=== PATIENT | male | born 1945 | race Caucasian/White ===

== ENCOUNTER 2017-09-08 21:21 | Inpatient (IN) ==
[2017-09-08 22:05] LABS: Basophils # 0.1 K/mcL (0.0-0.2); Eosinophils # 0.3 K/mcL (0.0-0.6); Eosinophils % 3.3 %; Hematocrit 46.4 % (37.5-50.1); Hemoglobin 14.9 g/dL (12.9-16.9); Immature Granulocytes % 0.3 % (0-4); Lymphocytes # 2.5 K/mcL (0.6-4.6); Lymphocytes % 27.8 %; Mean Corpuscular HGB Conc 32.1 g/dL (31.6-35.5); Mean Corpuscular Hemoglobin 27.9 pg (28.0-33.3); Mean Corpuscular Volume 86.9 fL (83.0-100.0); Mean Platelet Volume 9.7 fL (9.4-12.4); Monocytes # 0.7 K/mcL (0.0-1.3); Neutrophils # 5.3 K/mcL (1.6-8.9); Platelet Count 218 K/mcL (140-400); Red Blood Count 5.34 M/mcL (4.19-5.50); Red Cell Distribution Width 13.4 % (11.5-14.5); Segmented Neutrophils % 59.6 %
[2017-09-08 22:12] LABS: Prothrombin Time 10.7 Seconds (9.4-12.1)
[2017-09-08 22:15] LABS: Activated Partial Thrombo Time 32.8 Seconds (26.0-36.0)
[2017-09-08 22:27] LABS: BUN/Creatinine Ratio 20 (6-26); Blood Urea Nitrogen 18 mg/dL (8-23); Calcium 9.7 mg/dL (8.6-10.3); Carbon Dioxide 31 mEq/L (23-29); Chloride 101 mEq/L (98-107); Glucose 143 mg/dL (70-105); Osmolality,Calculated 292 (280-300); Potassium 4.3 mEq/L (3.5-5.1); Sodium 139 mEq/L (136-145); Troponin I < 0.03 ng/mL (< 0.04); eGFR For African Americans > 60 (> 60); eGFR For Non-African Americans > 60 (> 60)
--- NOTE | 2017-09-09 01:22 | Emergency Department Note ---
Disposition Clinical Impression: Atypical chest pain Left shoulder pain Qualifiers: Chronicity: acute Qualified Code(s): M25.512 - Pain in left shoulder Disposition: Admitted As Inpatient Condition: Good Referrals: Omari,Paulina Dugan CNP [Primary Care Provider] - Forms: ED Satisfaction Letter Time of Disposition: 02:21 Chest Pain HPI - General Chief Complaint: ED Chest Pain Stated Complaint: shoulder arm pain heart cath tomorrow Time Seen by Provider: 09/08/17 22:05 Source: patient Limitations: no limitations Vital Signs Reviewed: Yes Nursing Notes Reviewed: Yes - History of Present Illness HPI Narrative: 72-year-old male smoker diabetic complains of upper extremity pain . He mentions he was accompanied with some shortness of breath, and was worse on exertion. His pain radiated up into his jaw. Any had tingling to his left pinky. Pain had improved after 1 nitroglycerin. He does mention he was scheduled for a cardiac catheterization tomorrow morning. He denies any cough, hemoptysis, fever, abdominal pain, passing out, chest pain. Severity scale (1-10): 0 - Related Data Home Medications Medication Instructions Recorded Confirmed Jardiance 01/14/16 Lisinopril 01/14/16 Metformin 01/14/16 Tylenol 01/14/16 Previous Rx's Medication Instructions Recorded predniSONE [Prednisone] 40 mg PO QAM #10 tablet 01/14/16 Allergies Allergy/AdvReac Type Severity Reaction Status Date / Time liraglutide [From Victoza] AdvReac See Verified 03/26/15 12:53 Comments sitagliptin [From Januvia] AdvReac See Verified 03/26/15 12:53 Comments All systems ED: reviewed and negative except as stated. Review of Systems: As Per HPI Constitutional: Denies: fever, chills, weakness Eyes: Denies: vision change ENT ED: Denies: throat pain Cardiovascular: Reports: as per HPI Respiratory: Reports: as per HPI Gastrointestinal: Reports: as per HPI. Denies: abdominal pain Genitourinary: Denies: dysuria Musculoskeletal: Reports: as per HPI Integumentary: Denies: rash Neurological: Denies: headache Psychiatric: Denies: anxiety Endocrine: Denies: fatigue Hematological/Lymphatic: Denies: easy bleeding Allergic/Immunologic: Denies: facial swelling Chest Pain PMH - Past Medical History Medical history: Reports: diabetes, hypertension Surgical history: Reports: non-contributory Psychiatric history: Reports: no psych history - Social History Smoking Status: Former smoker Alcohol use: Reports: rarely Drug use: Reports: none Physical Exam - General Limitations: no limitations General appearance: alert, in no apparent distress - Head Head exam: normocephalic - Eye Eye exam: Present: EOMI. Absent: conjunctival injection - ENT ENT exam: mucous membranes moist - Neck Neck exam: Present: normal inspection, full ROM - Chest Chest inspection: Present: normal inspection. Absent: symmetric chest wall rise - Respiratory Respiratory exam: Present: normal lung sounds bilaterally. Absent: respiratory distress - Cardiovascular Cardiovascular exam: Present: regular rate, normal rhythm - Abdominal Exam Abdominal exam: Present: soft, Non-Tender - Extremities Exam Extremities exam: Present: normal inspection, full ROM, normal capillary refill. Absent: pedal edema - Back Exam Back exam: Present: full ROM. Absent: tenderness - Neurological Exam Neurological exam: Present: alert - Psychiatric Psychiatric exam: Present: normal affect, normal mood - Skin Skin exam: Present: warm, dry, intact, normal color. Absent: diaphoresis Course Course Narrative: Patient is a 72-year-old male former smoker that presented for concern for possible heart attack. He mentions he had pain into his back, left shoulder, jaw, that was worse with exertion and improved after nitroglycerin. Patient is scheduled for cardiac catheterization tomorrow morning. I have reviewed EMR. Did have cardiac evaluation last week, did show some ischemic changes. His vitals within normal limits here. EKG tonight shows nonspecific T-wave abnormalities otherwise no acute signs of ischemia. On exam he is in no acute distress systolic toxic. Vitals within normal limits. He is no elevation troponin. His lab work appears unremarkable. I did discuss patient with Dr. Cortes, who agreed to see patient, and agreed for admission for ACS rule out. - Reevaluation(s) Reevaluation #1: Pt discussed with and accepted by hospitalist Dr. Negro Time: 02:21 Vital Signs Temperature 98.0 F 09/08/17 21:25 Pulse Rate 65 09/08/17 21:25 Respiratory Rate 16 09/08/17 21:25 Blood Pressure 153/82 09/08/17 21:25 O2 Sat by Pulse Oximetry 92 09/08/17 21:25 Temperature 98.0 F 09/08/17 21:25 Pulse Rate 66 09/09/17 00:28 Respiratory Rate 16 09/09/17 00:28 Blood Pressure 132/79 09/09/17 00:28 O2 Sat by Pulse Oximetry 94 09/09/17 00:28 Oxygen Delivery Oxygen Delivery Room Air Chest Pain - Lab Data Lab results reviewed: Yes I reviewed the patient's lab results. Result diagrams: 09/08/17 21:42 09/08/17 21:42 Lab Results 09/08/17 09/08/17 09/08/17 Range/Units 21:42 21:42 21:42 WBC 8.8 (4.3-11.1) K/mcL RBC 5.34 (4.19-5.50) M/mcL Hgb 14.9 (12.9-16.9) g/dL Hct 46.4 (37.5-50.1) % MCV 86.9 (83.0-100.0) fL MCH 27.9 L (28.0-33.3) pg MCHC 32.1 (31.6-35.5) g/dL RDW 13.4 (11.5-14.5) % Plt Count 218 (140-400) K/mcL MPV 9.7 (9.4-12.4) fL Immature Gran % 0.3 (0-4) % Seg Neutrophils % 59.6 % Lymphocytes % 27.8 % Monocytes % 8.0 % Eosinophils % 3.3 % Basophils % 1.0 % Neutrophils # 5.3 (1.6-8.9) K/mcL Lymphocytes # 2.5 (0.6-4.6) K/mcL Monocytes # 0.7 (0.0-1.3) K/mcL Eosinophils # 0.3 (0.0-0.6) K/mcL Basophils # 0.1 (0.0-0.2) K/mcL PT 10.7 (9.4-12.1) Seconds INR 1.0 APTT 32.8 (26.0-36.0) Seconds Sodium 139 (136-145) mEq/L Potassium 4.3 (3.5-5.1) mEq/L Chloride 101 (98-107) mEq/L Carbon Dioxide 31 H (23-29) mEq/L BUN 18 (8-23) mg/dL Creatinine 0.92 (0.70-1.30) mg/dL Est GFR ( Amer) > 60 (> 60) Est GFR (Non-Af Amer) > 60 (> 60) BUN/Creatinine Ratio 20 (6-26) Glucose 143 H (70-105) mg/dL Calculated Osmolality 292 (280-300) Calcium 9.7 (8.6-10.3) mg/dL Troponin I < 0.03 (< 0.04) ng/mL - Radiology Data Radiology results reviewed: Yes I reviewed the patient's radiology results. - EKG Data EKG attestation: Yes I reviewed and interpreted this EKG. EKG shows normal: sinus rhythm Rate: normal Rhythm: NSR [place]/QRS: normal When compared to previous EKG there are: changes noted Interpretation: nonspecific ST-T wave changes Heart Score - Score History: Moderately Suspicious EKG: Non Specific repolarisation Disturbance Age: Greater than 65 Risk Factors: Equal/Greater than 3 risk factor or history of atherosclerotic disease Troponin: Less than normal limit HEART Score Total: 6
--- NOTE | 2017-09-09 06:30 | Emergency Department Note ---
Disposition Clinical Impression: Atypical chest pain Left shoulder pain Qualifiers: Chronicity: acute Qualified Code(s): M25.512 - Pain in left shoulder Disposition: Admitted As Inpatient Condition: Good General Adult HPI - General Chief complaint: ED Chest Pain Stated complaint: shoulder arm pain heart cath tomorrow Time Seen by Provider: 09/08/17 22:05 Source: patient Limitations: no limitations - History of Present Illness Pain Scale: 0 - Related Data Home Medications Medication Instructions Recorded Confirmed Jardiance 25 mg PO DAILY 01/14/16 Lisinopril 10 mg PO 01/14/16 Metformin 500 mg PO 01/14/16 Aspirin [Ecotrin] 325 mg PO 09/09/17 Atorvastatin [Lipitor] 10 mg PO HS 09/09/17 09/09/17 Metoprolol Succinate [Toprol Xl] 09/09/17 Nitroglycerin [Nitrostat] 09/09/17 Tamsulosin HCl [Flomax] 09/09/17 traZODone [TraZODone] 50 mg PO 09/09/17 Allergies Allergy/AdvReac Type Severity Reaction Status Date / Time liraglutide [From Victoza] AdvReac See Verified 03/26/15 12:53 Comments sitagliptin [From Januvia] AdvReac See Verified 03/26/15 12:53 Comments Constitutional: Denies: fever, chills, weakness Eyes: Denies: vision change ENT ED: Denies: throat pain Cardiovascular: Reports: as per HPI Respiratory: Reports: as per HPI Gastrointestinal: Reports: as per HPI. Denies: abdominal pain Genitourinary: Denies: dysuria Musculoskeletal: Reports: as per HPI Integumentary: Denies: rash Neurological: Denies: headache Psychiatric: Denies: anxiety Endocrine: Denies: fatigue Hematological/Lymphatic: Denies: easy bleeding Allergic/Immunologic: Denies: facial swelling Past Medical History - Past Medical History Medical history: Reports: diabetes, hypertension Surgical history: Reports: non-contributory, appendectomy, knee replacement Psychiatric history: Reports: no psych history - Social History Smoking Status: Former smoker Smokeless Tobacco Status: No Alcohol use: Reports: rarely Drug use: Reports: none Physical Exam - General Limitations: no limitations General appearance: alert, in no apparent distress Course Vital Signs Temperature 98.0 F 09/08/17 21:25 Pulse Rate 65 09/08/17 21:25 Respiratory Rate 16 09/08/17 21:25 Blood Pressure 153/82 09/08/17 21:25 O2 Sat by Pulse Oximetry 92 09/08/17 21:25 Temperature 97.9 F 09/09/17 03:36 Pulse Rate 64 09/09/17 03:36 Respiratory Rate 15 09/09/17 03:36 Blood Pressure 127/74 09/09/17 03:36 O2 Sat by Pulse Oximetry 94 09/09/17 03:36 Oxygen Delivery Oxygen Delivery Room Air Medical Decision Making - Lab Data Result diagrams: 09/08/17 21:42 09/08/17 21:42 Lab Results 09/08/17 09/08/17 09/08/17 Range/Units 21:42 21:42 21:42 WBC 8.8 (4.3-11.1) K/mcL RBC 5.34 (4.19-5.50) M/mcL Hgb 14.9 (12.9-16.9) g/dL Hct 46.4 (37.5-50.1) % MCV 86.9 (83.0-100.0) fL MCH 27.9 L (28.0-33.3) pg MCHC 32.1 (31.6-35.5) g/dL RDW 13.4 (11.5-14.5) % Plt Count 218 (140-400) K/mcL MPV 9.7 (9.4-12.4) fL Immature Gran % 0.3 (0-4) % Seg Neutrophils % 59.6 % Lymphocytes % 27.8 % Monocytes % 8.0 % Eosinophils % 3.3 % Basophils % 1.0 % Neutrophils # 5.3 (1.6-8.9) K/mcL Lymphocytes # 2.5 (0.6-4.6) K/mcL Monocytes # 0.7 (0.0-1.3) K/mcL Eosinophils # 0.3 (0.0-0.6) K/mcL Basophils # 0.1 (0.0-0.2) K/mcL PT 10.7 (9.4-12.1) Seconds INR 1.0 APTT 32.8 (26.0-36.0) Seconds Sodium 139 (136-145) mEq/L Potassium 4.3 (3.5-5.1) mEq/L Chloride 101 (98-107) mEq/L Carbon Dioxide 31 H (23-29) mEq/L BUN 18 (8-23) mg/dL Creatinine 0.92 (0.70-1.30) mg/dL Est GFR ( Amer) > 60 (> 60) Est GFR (Non-Af Amer) > 60 (> 60) BUN/Creatinine Ratio 20 (6-26) Glucose 143 H (70-105) mg/dL Calculated Osmolality 292 (280-300) Calcium 9.7 (8.6-10.3) mg/dL Troponin I < 0.03 (< 0.04) ng/mL Attestation Statement - Attestation Attestation: I examined this patient and my medical decision-making was reviewed with the Resident Physician. I agree with the documented findings, disposition and treatment plan as described except to the extent set forth below. Findings consistent with chest pain. Scheduled for cardiac catheterization today. This could be anginal colon's. Cardiac biomarkers are negative. We will admit for further management as he is getting cardiac catheterization today.
--- NOTE | 2017-09-09 10:13 | Cardiology Consult Note ---
Date of Encounter: 09/09/17 Time of Encounter: 10:06 Assessment and Plan (1) Unstable angina Current Visit: Yes Status: Acute Chest discomfort concerning for unstable angina. Has multiple risk factors for CAD including HTN, DM, hyperlipidemia, hx of tobacco use, family hx of CAD. Stress test abnormal with evidence of anterior ischemia. Discussed options with patient- will proceed with cardiac catheterization to evaluate for obstructive CAD. All risks/benefits of cardiac catheterization discussed. Agreeable to proceed. Troponins negative x 2. No acute EKG changes. LHC today. Check TTE as well. (2) Abnormal stress test Current Visit: Yes Status: Acute As above. Discussion w patient/family: The assessment and plan as outlined above was discussed with the patient and/or family members who expressed understanding and agreement. All questions were answered. Thank you for involving us in the care of your patient. Please call with any questions. I will discuss all the above with Dr. Jonna Morataya and make changes as necessary. History of Present Illness Consult date: 09/09/17 Consult reason: unstable angina Chief complaint: chest, back, shoulder, jaw pain History of present illness: Mr. Bourgeois is a 72 year old male with PMH of DM, HTN, hyperlipidemia, PAF presented to ED for chest pain. For past month, pt has had intermittent exertional chest discomfort. Radiates to L arm/shoulder/neck/back. Associated with dyspnea. Resolves with rest. Has had some L arm discomfort while at rest. Symptoms last for few minutes and resolve. He states that episodes have been worsening and yesterday evening after dinner he experienced symptoms at rest. Chest, L arm/shoulder/back pain, jaw tightness. Relieved with 1 nitro. He was concerned, and presented to ED. He was already scheduled for a LHC today for an abnormal stress test on 08/31/17. Moderate intensity stress perfusion defect involving the mid to apical anterior wall consistent with reversible ischemia. TID noted. Denies prior cardiac catheterizations. Told had PAF several years ago. Declined anticoagulation at that time due to nuisance bleeding. Troponin negative x 2. Cardiology consulted for further recs. Past Med Surg Social Fam HX - Past Medical History Medical history: diabetes, hypertension Psychiatric history: no psych history - Past Surgical History Surgical History: non-contributory, appendectomy, knee replacement - Social History Smoking Status: Former smoker Smokeless Tobacco Status: No Alcohol use: rarely Drug use: none - Family History Maternal Grandmother Hx Family Cardiac Disorders: Yes Medications and Allergies Dapagliflozin Propanediol [Farxiga] 10 mg PO DAILY 09/09/17 [History] Empagliflozin [Jardiance] 25 mg PO 09/09/17 [History] Flaxseed Oil [[place]o-3 Flaxseed Oil] 1,000 mg PO DAILY 09/09/17 [History] Insulin Degludec [Tresiba Flextouch U-100] 100 unit SQ 09/09/17 [History] Lisinopril [Zestril] 5 mg PO DAILY 09/09/17 [History] Metoprolol Succinate [Toprol Xl] 25 mg PO DAILY 09/09/17 [History] Nitroglycerin [Nitrostat] 0.4 mg SL Q5M PRN 09/09/17 [History] [place]-3/Dha/Epa/Fish Oil [Fish Oil 1,000 mg Softgel] 2 cap PO DAILY 09/09/17 [ History] Tamsulosin [Flomax] 0.4 mg PO DAILY 09/09/17 [History] metFORMIN [Glucophage] 1,000 mg PO BIDWM 09/09/17 [History] traZODone [TraZODone] 50 mg PO HS 09/09/17 [History] 3 Allergy/AdvReac Type Severity Reaction Status Date / Time liraglutide [From Victoza] AdvReac See Verified 03/26/15 12:53 Comments sitagliptin [From Januvia] AdvReac See Verified 03/26/15 12:53 Comments All Systems Review: The remainder of the systems were reviewed and are negative - Cardiovascular Cardiovascular: as per HPI, chest pain at rest, chest pain with exertion, dyspnea on exertion, radiating jaw, neck or arm pain - Respiratory Respiratory: dyspnea Physical Examination Vital Signs, Last 4 Hours Temp Pulse Resp BP Pulse Ox 09/09/17 06:43 97.4 F L 54 16 125/72 96 Vital Signs Temp Pulse Resp BP Pulse Ox 09/09/17 06:43 97.4 F L 54 16 125/72 96 09/09/17 03:36 97.9 F 64 15 127/74 94 09/09/17 03:12 16 126/75 09/09/17 00:28 66 16 132/79 94 09/08/17 21:25 98.0 F 65 16 153/82 92 Intake and Output 09/08/17 09/09/17 09/09/17 23:59 07:59 15:59 Intake Total 0 / 0 Balance 0 / 0 Intake: Oral 0 / 0 Other: Meal NPO # Voids 1 Weight 127.006 kg 128.82 kg Patient Weight 09/09/17 23:59 Weight 128.82 kg General: Conversant, No Apparent Distress HEENT: Atraumatic, Normocephaly, Mucus Membranes Moist Neck: No JVD, Normal carotid pulses Cardiac: Reg Rate and Rhythm, Normal S1 and S2, No Murmur Lungs: Normal Breath Sounds, No Wheeze, Rales, Rhonchi Neuro: Alert and responsive, No focal deficits noted Abdomen: Soft, Non-Tender Skin: No rashes noted on visualized skin Musculoskeletal: No Chest Wall Tenderness Extremities: No Clubbing, No Cyanosis, No Edema, Normal Pulses Results 09/08/17 21:42 09/08/17 21:42 Lab Results 09/09/17 04:57 Troponin I < 0.03 Short CBC 09/08/17 Range/Units 21:42 WBC 8.8 (4.3-11.1) K/mcL Hgb 14.9 (12.9-16.9) g/dL Hct 46.4 (37.5-50.1) % Plt Count 218 (140-400) K/mcL Neutrophils # 5.3 (1.6-8.9) K/mcL BMP 09/08/17 Range/Units 21:42 Sodium 139 (136-145) mEq/L Potassium 4.3 (3.5-5.1) mEq/L Chloride 101 (98-107) mEq/L Carbon Dioxide 31 H (23-29) mEq/L BUN 18 (8-23) mg/dL Creatinine 0.92 (0.70-1.30) mg/dL Glucose 143 H (70-105) mg/dL Calcium 9.7 (8.6-10.3) mg/dL Cardiac Enzymes 09/09/17 09/08/17 Range/Units 04:57 21:42 Troponin I < 0.03 < 0.03 (< 0.04) ng/mL Impressions Chest X-Ray 09/08/17 21:31 IMPRESSION: 1. No acute process. D/ / Syed Garcia MD / Syed Garcia MD Interpreting Provider: Syed Garcia MD - EKG Interpretation EKG results cardiology: personally reviewed (SR) Consult Discharge Plan - Plan Referrals: Paulina Salcido CNP [Primary Care Provider] -
[2017-09-09] MEDS ORDERED: Heparin 1,000 UNITS/500 mL 500 ML ONE (11:19)
[2017-09-09] MEDS ORDERED: Naloxone 0.4 MG/ML INJ IVP PRN (11:19)
[2017-09-09] MEDS ORDERED: ISOVUE-370 200 ML INFUS..BTL IV ONE (11:19)
[2017-09-09] MEDS ORDERED: *HR* Heparin 10,000 UNIT/10 ML VIAL ONE (11:19)
[2017-09-09] MEDS ORDERED: 0.9 % Sodium Chloride 1,000 ML ONE (11:19)
[2017-09-09] MEDS ORDERED: Nitroglycerin 1,000 MCG/10 ML VIAL IV ONE (11:20)
[2017-09-09] MEDS ORDERED: Nitroglycerin 0.4 MG TAB.SUBL SL PRN (11:21)
[2017-09-09] MEDS ORDERED: *HR* Dextrose 50 % in Water (Syg) 50 ML SYRINGE IVP PRN (11:25)
[2017-09-09] MEDS ORDERED: D5% in Water 1,000 ML IVC PRN (11:25)
[2017-09-09] MEDS ORDERED: Dextrose Gel 15 GM/37.5 ML TUBE PO PRN ×2 (11:25)
[2017-09-09] MEDS ORDERED: 0.9 % Sodium Chloride 1,000 ML IVC SCH ×2 (11:30→13:15)
[2017-09-09] MEDS ORDERED: *HR* HYDROcodone/Acet 5/325 mg TABLET PO PRN (11:41)
[2017-09-09] MEDS ORDERED: Acetaminophen 325 MG TABLET PO PRN (11:41)
[2017-09-09] MEDS ORDERED: *HR* Midazolam HCl 2 MG/2 ML VIAL ONE ×2 (11:47→12:17)
[2017-09-09] MEDS ORDERED: *HR* FentaNYL (PF) 100 MCG/2 ML VIAL ONE (11:48)
--- NOTE | 2017-09-09 11:56 | Pre-Sedation Evaluation ---
Pre-sedation evaluation - Pre-sedation checklist Date of procedure: 09/09/17 Procedure: [facility] Recent Vitals: Last Vital Signs Temp 97.4 F L 09/09/17 06:43 Pulse 54 09/09/17 06:43 Resp 16 09/09/17 06:43 BP 125/72 09/09/17 06:43 Pulse Ox 96 09/09/17 06:43 H&P (including ROS) documented in medical record: Yes Previous reaction to sedatives/anesthetics: No Dietary Status: NPO after Midnight Airway Assessment: Patient can open mouth completely, TMJ function normal, Micrognathia (under-bite, receding chin) absent, Neck with adequate range of motion Dentition: No loose teeth or bridges Possible difficult airway: No ASA Classification *see protocol: CLASS II-Mild systemic disease Plan of Care: Pt appropriate candidate for procedure/moderate/conscious sedation , Risks/benefits of procedure/sedation discussed w/ patient/family
[2017-09-09] MEDS ORDERED: *HR* Bivalirudin 250 MG VIAL IVC ONE ×2 (12:07→12:37)
[2017-09-09] MEDS ORDERED: *HR* Ticagrelor 90 MG TABLET ONE (12:35)
[2017-09-09] MEDS: Metoprolol XL (24 HR) Succ 25 MG TAB.ER.24H PO SCH (13:07)
[2017-09-09] MEDS: Multivit/Ca/Min/Fe/FA 1 TAB TABLET PO SCH ×2 (13:07→21:14)
--- NOTE | 2017-09-09 14:05 | Invasive Diagnostic Lab Proc ---
Name: Salvatore Bourgeois Date of Study: 09/09/2017 Date: 1945 Ht: 72.8in Medical Record#: [id number] Age: 72 Wt: 284.40lb Gender: Male BSA: 2.49 Order #: [id number] BMI: 37.69 Physicians Procedure Physician: Jonna Morataya MD, [facility] Referring MD: Referring MD: Staff Name Position Time In RochellepradipJennifer meehan RN Monitor 11:42 AM Edison Quigley RN Accountant Auditor 11:42 AM Emily, Caryl RT (R) Scrub 11:42 AM Indications Indication Unstable Angina Abnormal Test - Stress Procedures Performed Procedure L HRT ARTERY/VENTRICLE ANGIO PRQ CARD FLOR STENT W/ANGIO 1 VSL Pre-Procedure Checklist Informed consent is complete signed and on chart. H&P is on chart. ID band is on and ID verified with patient. Patient NPO for procedure The procedure was described for the patient and questions were answered. Blood Pressure: 152/87 ECG is on chart. Rhythm: Sinus Bradycardia Plan of Care Patient will tolerate the procedure without complications. Adequate level of comfort will be maintained. Hemodynamics will remain stable Patient will recover from procedure without complications. Respiratory function will be maintained. Cardiac rhythm will remain stable. Patient temperature will be maintained. Patient and/or family have verbalized understanding of the procedure. Patient Education Chief Complaint/Reason for Test: Cardiac Cath Developmental Category: Geriatric (65+ years) Developmentally Appropriate for Age: Yes Learning Barriers: None Education Needs: Procedure Education Method: Verbal Information Taught: Cardiac Cath Educational Evaluation: Able to repeat information Intravenous Access Time IV Size Location DC'd Fluid/Drip Rate Units RN 0.9NaCl Allergies liraglutide sitagliptin Vital Signs Time BP (mmHg) HR (bpm) O2 Sat. RR (bpm) LOC 12:02 PM / % 5 = Fully awake and oriented or at pre-proc level 12:02 PM / % 4 = Oriented but drowsy 12:17 PM / % 4 = Oriented but drowsy 11:49 AM 152 / 87 57 98 % 11:54 AM 135 / 79 57 97 % 11:59 AM 128 / 74 56 98 % 12:04 PM 131 / 81 55 98 % 12:09 PM 137 / 81 61 97 % 12:14 PM 140 / 86 58 99 % 12:19 PM 134 / 83 58 98 % 12:24 PM 133 / 84 59 98 % 12:29 PM 133 / 77 56 98 % 12:34 PM 126 / 75 61 96 % 12:39 PM 130 / 82 56 97 % 12:44 PM 131 / 71 55 96 % 01:03 PM 127 / 73 57 93 % 01:17 PM 138 / 77 55 96 % 15 5 = Fully awake and oriented or at pre-proc level 01:30 PM 123 / 72 54 93 % 16 5 = Fully awake and oriented or at pre-proc level 01:56 PM 122 / 78 76 95 % 12 5 = Fully awake and oriented or at pre-proc level Procedural Medications Time Medication Dose Units Method Given By 11:58 AM Oxygen 2 L/min nasal cannula Edison Quigley RN 11:58 AM Versed 2 mg Intravenous HenthornEdison haq RN 11:58 AM Fentanyl 50 mcg Intravenous Edison Quigley RN 12:04 PM Lidocaine 2% 19 ml Subcutaneous Jonna Morataya MD, FACC 12:16 PM Angiomax 0.75mg/kg bolus: 19.5 ml Intravenous JohnnythEdison roman RN 12:16 PM Angiomax 1.75mg/kg/hr: 45.5 ml/hr Intravenous Edison Quigley RN 12:19 PM Versed 1 mg Intravenous HenthorneEdison RN 12:19 PM Fentanyl 25 mcg Intravenous SushilornEdison haq RN 12:31 PM Nitroglycerin 200 mcg Intracoronary Jonna Morataya MD, FACC 12:43 PM Brilinta 180 mg Orally Edison Quigley RN ASA Classification: CLASS II- Mild systemic disease (i.e. well-controlled diabetes, hypertension, asthma, cigarette smoking) Naveen Score Preprocedure Postprocedure Activity 2- Moves 4 extremities sustained head lift Activity 2- Moves 4 extremities sustained head lift Circulation 2- SBP +/= 20 points of pre-anesthetic level Circulation 2- SBP +/= 20 points of pre-anesthetic level Consciousness 2- Awake and alert oriented x 3 Consciousness 2- Awake and alert oriented x 3 O2 Saturation 2- Able to maintain O2 satruation of 92% on room air O2 Saturation 2- Able to maintain O2 satruation of 92% on room air Respiratory 2- Able to deep breathe and cough well Respiratory 2- Able to deep breathe and cough well Total Score 10 Total Score 10 Contrast Agent: Isovue Diagnostic Contrast: 171 ml Total Contrast: 171 ml Fluoro Dose: 901 mGy Procedure Log Time Note Enter By 11:42 AM Pt arrived to clinical laboratory director 2 at 11:41 [facility] 11:42 AM Jennifer Nolen RN Position: Monitor Time in: :42 [facility] 11:42 AM Edison Quigley RN Position: Accountant Auditor Time in: :42 [facility] 11:42 AM Caryl Diaz RT (R) Position: Scrub Time in: :42 [facility] 11:42 AM Patient charges- Angio tray pack, Navilyst 3mm J, Pulse Oximetry and ACIST tubing and transducer [facility] 11:42 AM Case Delayed No [facility] 11:42 AM Hair removed from procedure site in procedure lab using clippers. Bilateral groin prepped with Chloraprep by Caryl Diaz RT (R), then patient was draped. Skin intact. [facility] 11:42 AM Physican paged/called 11:42. [facility] 11:42 AM Physican responded and notified patient is ready 11:42 [facility] 11:42 AM Physician arrived 11:42 [facility] 11:42 AM Meet and greet completed [facility] 11:42 AM Sign in performed according to hospital policy. 11:42 AM Procedure start 11:42 11:42 AM CathStat 11:48 AM Vitals capture started with the following parameters, Patient=Adult, Interval=5 min, Initial Jwpoaurs=253 mmHg, Deflation Rate=5 mmHg, Cuff placed on Right Arm 11:49 AM HR=57 bpm, OBBW=102/87 mmhg, SpO2=98.0 %, Comment=SB 11:54 AM Recorded ECG: HR=56 Condition=Condition 1 11:54 AM ASA Class CLASS II- Mild systemic disease (i.e. well-controlled diabetes, hypertension, asthma, cigarette smoking) [facility] 11:54 AM HR=57 bpm, LWOO=541/79 mmhg, SpO2=97.0 %, Comment=SB 11:58 AM Time: 11:58 Oxygen on at 2 L/min per nasal cannula by Edison Quigley RN lalozoran 11:58 AM Time: 11:58 Versed 2 mg Intravenous Given by Edison Quigley RN 11:58 AM Time: 11:58 Fentanyl 50 mcg Intravenous Given by Edison Quigley RN 11:59 AM HR=56 bpm, RXQN=854/74 mmhg, SpO2=98.0 %, Comment=SB 12:02 PM Time: 12:02 Patient comfortable and pain free: Yes tsoummers 12:02 PM Time: 12:02LOC: 5 = Fully awake and oriented or at pre-proc level tsoummers 12:02 PM Clinical Presentation: Unstable angina ts[facility]ers 12:02 PM Time out performed according to hospital policy [facility] 12:03 PM Pressure channel 1 zeroed. 12:04 PM Time: 12:04 19 ml Lidocaine 2% to right groin Subcutaneous Given by Jonna Morataya MD, [facility] 12:04 PM HR=55 bpm, TSCH=499/81 mmhg, SpO2=98.0 %, Comment=SB 12:04 PM Access obtained by percutaneous puncture. 5Fr 10cm Terumo [place] sheath placed in right Femoral artery. [id number] [facility] 12:04 PM 0.035 145cm Navilyst 3mmJ wire [id number] [facility] 12:05 PM 5Fr FL 4 catheter inserted over the wire Count includes the [facility] 12:05 PM wire removed. tsou[facility]ers 12:05 PM Recorded Pressure: Ao, HR=55, Condition=Condition 1 (Aorta) Ao 124/74/95 12:06 PM LCA angiography performed in multiple views. tsoummers 12:07 PM wire reinserted. [facility] 12:07 PM [facility]atheter [facility] 12:07 PM 5Fr FR 4 catheter inserted over the wire Count includes the [facility] 12:07 PM Proximal Left Anterior Descending Coronary Artery with 99% stenosis. If graft is supplying this territory, 0 % stenosis. tsou[facility]ers 12:08 PM wire removed. ts[facility]ers 12:08 PM Recorded Pressure: Ao, HR=57, Condition=Condition 1 (Aorta) Ao 127/76/100 12:09 PM Coronary Dominance: right tsoummers 12:09 PM wire reinserted. tsou[facility]ers 12:09 PM HR=61 bpm, ITHU=473/81 mmhg, SpO2=97.0 %, Comment=NSR 12:09 PM Catheter removed [facility] 12:09 PM Lesion found in Proximal LAD. Pre Stenosis: 99 Pre DERRICK Flow: 2: Partial Flow/Perfusion (> 1 but < 3) [facility] 12:14 PM HR=58 bpm, LHVM=360/86 mmhg, SpO2=99.0 %, Comment=SB 12:14 PM defib pads placed on pt at this time. [facility] 12:15 PM Inflation device was opened. [facility] 12:15 PM Sheath exchanged for a 6 Fr 11 cm Cordis April sheath [id number] [facility] PM Time: 12:16 Angiomax 0.75mg/kg bolus: 19.5 ml Intravenous Given by Edison Quigley RN 12:16 PM Time: 12:16 Angiomax 1.75mg/kg/hr: 45.5 ml/hr Intravenous Given by Edison Quigley RN [place] [facility] 12:17 PM Time: 12:02 Patient comfortable and pain free: Yes [facility] 12:17 PM Time: 12:02LOC: 4 = Oriented but drowsy [facility] 12:17 PM 6Fr XB LAD 3.5 [place] Bright-Tip guide catheter was used to cannulate the PCI vessel successfully. reused? No [facility] 12:17 PM J wire removed [facility] 12:17 PM .014 Prowater 180cm guide wire across target lesion- successful. reused? No [facility] PM Recorded Pressure: Ao, HR=59, Condition=Condition 1 (Aorta) Ao 139/75/101 12:19 PM Time: 12:19 Versed 1 mg Intravenous Given by Edison Quigley RN 12:19 PM Time: 12:19 Fentanyl 25 mcg Intravenous Given by Edison Quigley RN 12:19 PM HR=58 bpm, EDRY=331/83 mmhg, SpO2=98.0 %, Comment=SB 12:23 PM 2.0 mm x 12 mm Emerge Monorail balloon across target lesion- successful. reused? No [facility] 12:23 PM Balloon inflated @ 8 helen for 20 seconds [facility] 12:24 PM Recorded Pressure: Ao, HR=58, Condition=Condition 1 (Aorta) Ao 135/77/102 12:24 PM HR=59 bpm, QLLF=582/84 mmhg, SpO2=98.0 %, Comment=SB 12:24 PM Recorded ECG: HR=57 Condition=Condition 1 12:25 PM Balloon catheter removed intact. tsou[facility]ers 12:26 PM 2.5mm x 16mm Synergy drug-eluting stent across target lesion- successful Lot [id number] [facility] 12[facility]28 PM Stent deployed @ 11 helen for 30 seconds tsouers 12:29 PM Stent balloon reinflated @ 18 helen for 20 seconds [facility] 12:29 PM HR=56 bpm, RTSC=594/77 mmhg, SpO2=98.0 %, Comment=SB 12:29 PM Stent balloon reinflated @ 18 helen for 10 seconds [facility] 12:30 PM Stent delivery system removed intact. [facility] 12:30 PM Recorded Pressure: Ao, HR=56, Condition=Condition 1 (Aorta) Ao 141/72/99 12:31 PM Time: 12:31 Nitroglycerin 200 mcg Intracoronary Given by oJnna Morataya MD, [facility] 12:32 PM Time: 12:17 Patient comfortable and pain free: Yes ts[facility]ers 12:32 PM Time: 12:17LOC: 4 = Oriented but drowsy [facility] 12:34 PM Guide wire removed intact. [facility] 12:34 PM Guide catheter removed intact. [facility] 12:34 PM HR=61 bpm, ZAAB=150/75 mmhg, SpO2=96.0 %, Comment=NSR 12:34 PM 5Fr Pigtail catheter inserted over the wire [facility] 12:34 PM Catheter selectively placed in left ventricle [facility] 12:34 PM Bolus angiogram of left Ventricle complete: 8 ml/sec for a total of 24 mls [facility] 12:36 PM Pressure channel 1 zeroed. 12:37 PM Recorded Pressure: LV, HR=59, Condition=Condition 1 (Left Ventricle) LV 106/1/2 12:38 PM Recorded Pressure: LV, Ao, HR=58, Condition=Condition 1 (Left Ventricle) LV 113/6/28, (Aorta) Ao 100/60/80 12:38 PM Catheter removed [facility] 12:39 PM HR=56 bpm, NPUD=943/82 mmhg, SpO2=97.0 %, Comment=SB 12:39 PM Bolus angiogram of right Femoral complete: 2 ml/sec for a total of 4 mls [facility] 12:39 PM j wire removed [facility] 12:39 PM Procedure completed at 12:39 [facility] 12:41 PM Did you address DERRICK flow and Dominance? Yes [facility] 12:41 PM Sign out completed: Radiation Dose 901.16 mGy Fluoro Time: 9.9 Isovue 370 - 200ml contrast 171 ml given by Jonna Morataya MD, [facility]. Complications: NoneCardiac Rehab Consult needed: YesConfirmed administered medications: Yes [facility] 12:41 PM Isovue 370 - 200ml,2 Bottle(s) used. [facility] 12:41 PM Sheath left in place to be pulled on floor/holding area [facility] 12:41 PM Estimated Blood Loss: less than 20cc [facility] 12:41 PM Post ECG Sinus Bradycardia [facility] 12:41 PM Post Blood Pressure 130/82 [facility] 12:42 PM Information taught Cardiac Cath and PCI [facility] 12:42 PM Education needs Procedure, Plan of Care, and Responsibilities of Patient in Care [facility] 12:42 PM Learning barriers :None [facility] 12:42 PM Education Methods Verbal [facility] 12:42 PM Education evaluation Able to repeat information [facility] 12:42 PM Site status No bleeding/hematoma - Rt Groin as reported by Sites, Caryl RT (R) at 12:42 [facility] 12:42 PM Opsite applied [facility] 12:42 PM Plavix, Effient or Brilinta given Yes [facility] 12:42 PM Delay to floor Bed availability [facility] 12:42 PM Family placed in consult room. [facility] 12:42 PM Complications: None [facility] 12:42 PM Fluoro Time: 9.9 [facility] 12:42 PM Isovue 370 - 200ml contrast [address] Morataya. [facility] 12:42 PM Radiation Dose 901.16 mGy [facility] 12:43 PM Time: 12:43 Brilinta 180 mg Orally Crushed Given by Edison Quigley RN oummers 12:44 PM HR=55 bpm, IRNQ=972/71 mmhg, SpO2=96.0 % 12:47 PM Lesion found in Proximal RCA. Pre Stenosis: 40 Pre DERRICK Flow: tsoummers 12:47 PM Lesion found in Mid RCA. Pre Stenosis: 40 Pre DERRICK Flow: [facility] 12:48 PM Lesion found in Distal RCA. Pre Stenosis: 50 Pre DERRICK Flow: ts[facility]ers 12:48 PM Lesion found in LMCA. Pre Stenosis: 20 Pre DERRICK Flow: ts[facility]ers 12:48 PM Lesion found in Proximal Circumflex. Pre Stenosis: 40 Pre DERRICK Flow: ts[facility]ers 12:48 PM Lesion found in Right PDA. Pre Stenosis: 30 Pre DERRICK Flow: ts[facility]ers 12:48 PM Lesion found in Ramus. Pre Stenosis: 20 Pre DERRICK Flow: ts[facility]ers 12:48 PM Left Main Coronary Artery with 20% stenosis [facility] 12:48 PM Circumflex, Obtuse Marginal, Left Posterior Descending, and Left Posterolateral Coronary Arteries with 40 % stenosis. If graft is supplying this area, 0 % stenosis [facility] 12:49 PM Right Coronary, Right Posterior Descending Arteries with Right Posterolateral and Acute Marginal branches with 50 % stenosis. If graft is supplying this area, 0 % stenosis [facility] 12:49 PM Ramus with 20% stenosis. If graft is supplying this area, 0 % stenosis [facility] 12:53 PM Report given to Tram DORAN Pt taken to Holding room Room #1. 12:53 ts[facility] 12:53 PM Patient out of room: 12:53 ts[facility] 01:17 PM stent card given to patients [email or web address] 01:46 PM Report given to Janna DORAN Pt taken to 2N Room #5. 13:46 [email or web address] 01:56 PM pt taken to by Neftali Huizar RN and Trever Quigley RN [email or web address] 01:56 PM Angiomax gtt off [email or web address] Complications Complication None Hemodynamics Pressures Site Systolic/A Wave Diastolic/V Wave Mean AO 124 74 95 AO 127 76 100 AO 139 75 101 AO 135 77 102 AO 141 72 99 LV 106 1 2 LV 113 6 28 AO 100 60 80 Post Procedure Information Blood Pressure: 130/82 mmHg Rhythm: Sinus Bradycardia Post procedural instructions were given Site Checks Time Location Status Staff Sheath In? Note 12:42 PM Rt Groin No bleeding/hematoma Sites, Caryl RT (R) Yes 01:03 PM Rt Groin No bleeding/ No Hematoma Kylah Trevino RT (R) Yes 01:18 PM Rt Groin No bleeding/ No Hematoma Tram Garner RN Yes 01:30 PM Rt Groin No bleeding/ No Hematoma Tram Garner RN Yes 01:56 PM Rt Groin No bleeding/ No Hematoma Luna Huizar RN Yes Pulses Time Site Pre-Procedure Post-Procedure Note Bilateral DP & PT 2+ Bilateral radial 2+ 09/09/2017 1:03:00 PM Bilateral DP & PT 2+ 09/09/2017 1:18:00 PM Bilateral DP & PT 2+ Updated by Tram Garner RN on 09/09/2017 1:58:14 PM electronically signed on 09/09/2017 1:58:36 PM with status of Final
[2017-09-09] MEDS ORDERED: Ondansetron 4 MG/2 ML VIAL ONE (14:59)
[2017-09-09] MEDS ORDERED: Ondansetron 4 MG/2 ML VIAL IVP PRN (15:00)
[2017-09-09] MEDS: (Flaxseed Oil [Omega-3 Flaxseed Oil] 1,000 MG) PO SCH (15:10)
[2017-09-09] MEDS: (Omega-3/Dha/Epa/Fish Oil [Fish Oil 1,000 Mg Softgel]) PO SCH (15:10)
[2017-09-09] MEDS: Insulin LISPRO 300 UNITS/3 ML VIAL SQ SCH ×2 (15:11→17:05)
[2017-09-09] MEDS ORDERED: *HR* Atropine Sulfate 1 MG/10 ML SYRINGE ONE (15:51)
[2017-09-09] MEDS ORDERED: (Insulin Degludec [Tresiba Flextouch U-100] 20 UNIT) SQ SCH (18:00)
[2017-09-09] MEDS ORDERED: Perflutren Lipid Microsphere 1.3 ML in 0.9 % Sodium Chloride 8.7 ML IVP ONE (20:35)
[2017-09-09] MEDS ORDERED: traZODone 50 MG TABLET PO SCH (21:00)
[2017-09-09] MEDS ORDERED: Insulin LISPRO 300 UNITS/3 ML VIAL SQ SCH (21:00)
--- NOTE | 2017-09-09 22:25 | Internal Med History&Physical ---
Date of Encounter: 09/09/17 Time of Encounter: 08:17 Internal Medicine - H&P: HPI Chief complaint: Chest Pain/Left Arm Pain Admitted From: Emergency Dept Plans for Post Hospital Care: Home History of present illness: Mr. Bourgeois is a 72 year old white male who presented to ED overnight for pain in left arm that radiated to left chest, left back, and jaw. He states that "I know something is wrong with my heart." Pain started yesterday. He was scheduled for outpatient catherterization today, but after pain started last night, he decided to come to ED. Pain is accompanied by SOB, and it is worse with exertion. Pain improved somewhat with nitro. He denies palpitations, fever, chills, nausea, or vomiting. In the ED, EKG showed non-specific T wave changes, otherwise unremarkable. Initial troponin was WNL. Past Med Surg Social Fam HX - Past Medical History Attestation: Yes The following information was validated with the patient. Source: patient Medical history: diabetes, hypertension Psychiatric history: no psych history - Past Surgical History Surgical History: non-contributory, appendectomy, knee replacement - Social History Smoking Status: Former smoker Smokeless Tobacco Status: No Alcohol use: rarely Drug use: none - Family History Maternal Grandmother Hx Family Cardiac Disorders: Yes Internal Medicine - H&P: Meds Aspirin 325 mg PO DAILY 09/09/17 [History] Atorvastatin [Lipitor] 10 mg PO HS 09/09/17 [History] Dapagliflozin Propanediol [Farxiga] 10 mg PO DAILY 09/09/17 [History] Empagliflozin [Jardiance] 25 mg PO DAILY 09/09/17 [History] Flaxseed Oil [Liberty-3 Flaxseed Oil] 1,000 mg PO DAILY 09/09/17 [History] Insulin Degludec [Tresiba Flextouch U-100] 20 unit SQ QPM 09/09/17 [History] Lisinopril [Zestril] 5 mg PO DAILY 09/09/17 [History] Metoprolol Succinate [Toprol Xl] 25 mg PO DAILY 09/09/17 [History] Nitroglycerin [Nitrostat] 0.4 mg SL Q5M PRN 09/09/17 [History] Liberty-3/Dha/Epa/Fish Oil [Fish Oil 1,000 mg Softgel] 2 cap PO DAILY 09/09/17 [ History] Tamsulosin [Flomax] 0.4 mg PO DAILY 09/09/17 [History] Vit C/E/Zn/Coppr/Lutein/Zeaxan [Preservision Areds 2 Softgel] 1 cap PO BID 09/09 [History] metFORMIN [Glucophage] 1,000 mg PO BIDWM 09/09/17 [History] traZODone [TraZODone] 50 mg PO HS 09/09/17 [History] 3 Allergy/AdvReac Type Severity Reaction Status Date / Time liraglutide [From Victoza] AdvReac See Verified 03/26/15 12:53 Comments sitagliptin [From Januvia] AdvReac See Verified 03/26/15 12:53 Comments All Systems PM: A 10-system review of systems was performed and is negative for pertinent findings except as documented above in the HPI. - Constitutional Constitutional: no anorexia, no chills, no fatigue, no fever(s), no lethargy, no malaise, no weakness, no weight gain, no weight loss - EENT Eyes: no blurry vision, no diplopia, no loss of vision, no pain Ears: no decreased hearing, no ear pain Nose, mouth and throat: no dry mouth, no dysphagia, no mouth pain, no nasal congestion, no nasal discharge, no sinus pain, no sore throat - Cardiovascular Cardiovascular ROS IM: chest pain, dyspnea, no claudication, no diaphoresis, no edema, no lightheadedness, no palpitations, no syncope - Respiratory Respiratory: dyspnea, no cough, no hemoptysis, no wheezing, no chest congestion - Gastrointestinal Gastrointestinal: no abdominal pain, no change in bowel habits, no constipation , no diarrhea, no heartburn, no hematemesis, no hematochezia, no melena, no nausea, no vomiting - Genitourinary Genitourinary ROS male: no dysuria, no hematuria, no urinary frequency - Musculoskeletal Musculoskeletal ROS IM: no arthralgias, no back pain, no joint swelling, no limited range of motion, no myalgias, no neck pain - Integumentary Integumentary IM: no erythema, no rash, no skin ulcer, no jaundice - Neurological Neurological ROS: no abnormal gait, no confusion, no dizziness, no focal weakness, no headache(s), no vertigo, no weakness - Psychiatric Psychiatric: no anxiety, no confusion, no depression - Endocrine Endocrine IM: no cold intolerance, no fatigue, no heat intolerance, no polydipsia, no polyphagia, no polyuria - Constitutional Vitals: Temp Pulse Resp BP Pulse Ox 98.1 F 60 21 138/74 91 09/09/17 18:49 09/09/17 21:00 09/09/17 18:49 09/09/17 21:00 09/09/17 18:49 General appearance: Present: cooperative, A&O X 3, pleasant, no acute distress, answers questions appropriately - Head Head exam: Present: atraumatic, normocephalic - Eye Eye exam: Present: EOMI, PERRL. Absent: nystagmus, scleral icterus - ENT ENT exam: Present: mucous membranes moist, normal external ear exam, normal oropharynx - Neck Neck exam general surgery: Present: supple, trachea midline. Absent: lymphadenopathy, tenderness, thyromegaly - Respiratory Respiratory exam: Present: CTAB. Absent: accessory muscle use, rales, rhonchi, wheezes Additional comments: Normal WOB - Cardiovascular Cardiovascular exam: Present: RRR, +S1, +S2. Absent: diastolic murmur, gallop, rubs, systolic murmur Additional comments: No BLE edema - GI/Abdominal GI/Abdominal exam: Present: normal bowel sounds, soft. Absent: distended, hepatomegaly, mass, splenomegaly, tenderness - Extremities Exam Extremities exam: Present: normal capillary refill, radial pulses palpable and symmetrical. Absent: calf tenderness, cyanotic, joint swelling, pedal edema - Neurological Exam Neurological exam: Present: alert, CN II-XII intact, oriented X3, strengths equal and symetr throughout. Absent: no focal deficits, facial droop, speech deficit - Psychiatric Psychiatric exam: Present: normal affect, normal mood. Absent: agitated, anxious, depressed - Skin Skin exam: Present: dry, intact, warm. Absent: cyanosis, rash Internal Med - H&P Results - Labs CBC & Chem 7: 09/10/17 03:56 09/10/17 03:56 Labs: Cardiac Enzymes 09/09/17 Range/Units 11:21 Troponin I < 0.03 (< 0.04) ng/mL - Assessment and plan (1) Unstable angina Current Visit: Yes Status: Acute Assessment and plan: Admit inpatient with telemetry. Trend troponin x 3. Continue supplemental O2 PRN, home nitro, home statin, home antihypertensives, and aspirin/plavix. Cardiology consulted; appreciate input. Plan for cath today. (2) Atypical chest pain Current Visit: Yes Status: Acute Assessment and plan: Management as per above. (3) HTN (hypertension) Current Visit: Yes Status: Chronic Assessment and plan: Continue home medications. Qualifiers: Hypertension type: essential hypertension Qualified Code(s): I10 - Essential (primary) hypertension (4) HLD (hyperlipidemia) Current Visit: Yes Status: Chronic Assessment and plan: Continue home medications. Qualifiers: Hyperlipidemia type: mixed hyperlipidemia Qualified Code(s): E78.2 - Mixed hyperlipidemia (5) Type II diabetes mellitus Current Visit: Yes Status: Acute Assessment and plan: Start accuchecks and low dose SSI QID AC/HS. Hold home PO medications. 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 - Time Spent With Patient Total time spent is greater than 50% in coordination of care (as documented) at patient's floor/unit and/or counseling patient: 25 - 35 minutes
[2017-09-10 04:36] LABS: Basophils # 0.1 K/mcL (0.0-0.2); Basophils % 0.8 %; Eosinophils # 0.2 K/mcL (0.0-0.6); Eosinophils % 2.5 %; Hematocrit 45.9 % (37.5-50.1); Hemoglobin 14.5 g/dL (12.9-16.9); Immature Granulocytes % 0.4 % (0-4); Lymphocytes % 22.5 %; Mean Corpuscular HGB Conc 31.6 g/dL (31.6-35.5); Mean Corpuscular Hemoglobin 27.8 pg (28.0-33.3); Mean Corpuscular Volume 87.9 fL (83.0-100.0); Mean Platelet Volume 9.7 fL (9.4-12.4); Monocytes # 0.7 K/mcL (0.0-1.3); Monocytes % 8.1 %; Neutrophils # 5.9 K/mcL (1.6-8.9); Platelet Count 208 K/mcL (140-400); Red Blood Count 5.22 M/mcL (4.19-5.50); Red Cell Distribution Width 13.6 % (11.5-14.5); Segmented Neutrophils % 65.7 %
[2017-09-10 04:50] LABS: BUN/Creatinine Ratio 21 (6-26); Blood Urea Nitrogen 14 mg/dL (8-23); Calcium 8.9 mg/dL (8.6-10.3); Carbon Dioxide 27 mEq/L (23-29); Chloride 104 mEq/L (98-107); Glucose 132 mg/dL (70-105); Osmolality,Calculated 288 (280-300); Potassium 4.1 mEq/L (3.5-5.1); Sodium 138 mEq/L (136-145); eGFR For African Americans > 60 (> 60); eGFR For Non-African Americans > 60 (> 60)
[2017-09-10] MEDS ORDERED: *HR* Enoxaparin 40 MG/0.4 ML SYRINGE SQ SCH (06:00)
[2017-09-10] MEDS: (Omega-3/Dha/Epa/Fish Oil [Fish Oil 1,000 Mg Softgel]) PO SCH (07:29)
[2017-09-10] MEDS: (Flaxseed Oil [Omega-3 Flaxseed Oil] 1,000 MG) PO SCH (07:29)
[2017-09-10] MEDS: Multivit/Ca/Min/Fe/FA 1 TAB TABLET PO SCH (07:44)
[2017-09-10] MEDS: Insulin LISPRO 300 UNITS/3 ML VIAL SQ SCH (07:52)
[2017-09-10] MEDS ORDERED: Aspirin 81 MG TAB.CHEW PO SCH (09:00)
[2017-09-10] MEDS ORDERED: Aspirin 325 MG TABLET PO SCH (09:00)
[2017-09-10] MEDS: Metoprolol XL (24 HR) Succ 25 MG TAB.ER.24H PO SCH (09:56)
[2017-09-10 11:10] VITALS: BP 123/76
--- NOTE | 2017-09-10 11:31 | Discharge Summary ---
- NOTES TO OUTPATIENT PROVIDER Notes to Outpatient Provider: Received PTCA/stent to pLAD, on ASA and Plavix Orders not resulted at time of discharge: Pending orders 09/10/17 06:00 ECG 12 lead ECG [ECG] AM 0600 Date of Encounter: 09/10/17 Time of Encounter: 09:00 - Discharge Diagnosis (1) Atypical chest pain Priority: Primary Status: Acute (2) HTN (hypertension) Priority: Secondary Status: Chronic Qualifiers: Hypertension type: essential hypertension Qualified Code(s): I10 - Essential (primary) hypertension (3) HLD (hyperlipidemia) Priority: Secondary Status: Chronic Qualifiers: Hyperlipidemia type: mixed hyperlipidemia Qualified Code(s): E78.2 - Mixed hyperlipidemia (4) Type II diabetes mellitus Priority: Secondary Status: Chronic Qualifiers: Diabetes mellitus nursing home insulin use: with nursing home use Diabetes mellitus complication status: without complication Qualified Code(s): E11.9 - Type 2 diabetes mellitus without complications; Z79.4 - long term care pharmacist (current) use of insulin; Z79.4 - [facility] (current) use of insulin; Z79.4 - [facility] ( current) use of insulin; Z79.4 - long term care pharmacist (current) use of insulin (5) CAD (coronary artery disease) Priority: Primary Status: Chronic Qualifiers: Coronary Disease-Associated Artery/Lesion type: [place] artery [place] vs. transplanted heart: [place] heart Associated angina: with unstable angina Qualified Code(s): I25.110 - Atherosclerotic heart disease of [place] coronary artery with unstable angina pectoris Hospital course: Mr. Bourgeois is a 72 year old male with the above medical problems, who was admitted with left-sided chest and jaw pain. Initial EKG showed nonspecific T- wave changes, serial troponins remained negative. Patient was started on anticoagulation with IV heparin drip along with aspirin, beta nellie and statin. He had a recent nuclear stress test which was abnormal, showing reversible ischemia in anterior wall, was being planned for outpatient left heart catheterization. TTE EF preserved, no significant valvular dysfunction. Cardiology was consulted and patient underwent left heart catheterization, received PTCA/drug-eluting stent to proximal LAD. Patient is also noted to have a history of paroxysmal atrial fibrillation. He is currently being discharged on dual antiplatelet therapy with aspirin, Plavix along with Eliquis. He is medically stable for discharge, with outpatient follow-up. Discharge discussed with: patient - Time Spent with Patient Total time spent providing and/or coordinating discharge services: Greater than 30 minutes (40 min) - Discharge Medications Prescriptions: Apixaban [Eliquis] 5 mg PO BID #60 tablet Aspirin 81 mg PO DAILY #90 tab.chew Atorvastatin [Lipitor] 80 mg PO HS #180 tablet Clopidogrel [Plavix] 75 mg PO DAILY #90 tablet Home Medications: Dapagliflozin Propanediol [Farxiga] 10 mg PO DAILY 09/09/17 [History] Empagliflozin [Jardiance] 25 mg PO DAILY 09/09/17 [History] Flaxseed Oil [[place]-3 Flaxseed Oil] 1,000 mg PO DAILY 09/09/17 [History] Insulin Degludec [Tresiba Flextouch U-100] 20 unit SQ QPM 09/09/17 [History] Lisinopril [Zestril] 5 mg PO DAILY 09/09/17 [History] Metoprolol Succinate [Toprol Xl] 25 mg PO DAILY 09/09/17 [History] Nitroglycerin [Nitrostat] 0.4 mg SL Q5M PRN 09/09/17 [History] [place]-3/Dha/Epa/Fish Oil [Fish Oil 1,000 mg Softgel] 2 cap PO DAILY 09/09/17 [ History] Tamsulosin [Flomax] 0.4 mg PO DAILY 09/09/17 [History] Vit C/E/Zn/Coppr/Lutein/Zeaxan [Preservision Areds 2 Softgel] 1 cap PO BID 09/09 [History] metFORMIN [Glucophage] 1,000 mg PO BIDWM 09/09/17 [History] traZODone [TraZODone] 50 mg PO HS 09/09/17 [History] Apixaban [Eliquis] 5 mg PO BID #60 tablet 09/10/17 [Rx] Aspirin 81 mg PO DAILY #90 tab.chew 09/10/17 [Rx] Atorvastatin [Lipitor] 80 mg PO HS #180 tablet 09/10/17 [Rx] Clopidogrel [Plavix] 75 mg PO DAILY #90 tablet 09/10/17 [Rx] Allergies/Adverse Reactions: 3 Allergy/AdvReac Type Severity Reaction Status Date / Time liraglutide [From Victoza] AdvReac See Verified 03/26/15 12:53 Comments sitagliptin [From Januvia] AdvReac See Verified 03/26/15 12:53 Comments Date of admission: 09/09/17 11:19 Primary care physician: Paulina Salcido CNP Consults: 09/09/17 13:13 Consult to Cardiac Rehabilitation-Phase1 [CONS] Routine Comment: Reason for Consult: post op PCI Call Completed: Yes Discharging clinician: Shannon Davidson Anticipated date of discharge: 09/10/17 - Constitutional Vitals: Temp Pulse Resp BP Pulse Ox 97.8 F 65 18 123/76 93 09/10/17 11:04 09/10/17 11:04 09/10/17 11:04 09/10/17 11:04 09/10/17 11:04 General appearance: Present: cooperative, A&O X 3, no acute distress, answers questions appropriately - Cardiovascular Cardiovascular exam: Present: RRR, +S1, +S2. Absent: diastolic murmur, gallop, rubs, systolic murmur - Patient Status Disposition: Home, Self-Care Condition: Good Functional capacity at discharge: independent ambulation Overall status at discharge: patient is progressing back to baseline - Discharge Instructions Instructions: Aspirin (By mouth), Atorvastatin (By mouth), Clopidogrel (By mouth), Apixaban (By mouth), Left Heart Catheterization (DC), Coronary Intravascular Stent Placement (DC) Follow Up With: David Barajas CNP [Advanced Practice Nurse] - 10/01/17 11:30 am Paulina Salcido CNP [Primary Care Provider] - 09/15/17 9:45 am Additional Instructions: RISK FACTORS: STOP SMOKING: If you smoke, STOP. Smoking or tobacco use significantly increases your risk of heart disease because nicotine causes the arteries to narrow or constrict. It also causes fats to stick to the artery. Your chances of having a heart attack are greatly increased if you continue to smoke. For more information, call the education line for smoking cessation 2-886-CKGCLMB EAT A LOW FAT/CHOLESTEROL/SODIUM DIET: This diet may help reduce your chances of having a heart attack. LIFTING: Avoid lifting anything more than 10 pounds for 5-7 days Prior to straining, laughing, sneezing and/or coughing, apply manual pressure directly over insertion site. ACTIVITY: You may walk or climb stairs as tolerated You can resume sexual activity as tolerated In general, you are encouraged to engage in a minimum of 30 minutes or more of moderate intensity physical activity, such as brisk walking, daily or at least 3 -4 times weekly BATHING Do not submerge the site into water (bath tub, hot tub, swimming pool) for 1 week. This can be a source for infection into the blood stream. You may shower after 24 hours SITE CARE: After 24 hours, you may remove the dressing and leave the site open to air. Keep the site clean and dry. Clean gently and pat dry. You can expect bruising and tenderness that gradually resolve within a week or two. Return to work as instructed per your physician Resume driving as instructed per physician Keep all scheduled follow up appointments Resume medications as instructed IMPORTANT: If prescribed a Platelet Aggregation Inhibitor such as, Plavix, Brilinta or Effient: Duration of therapy is minimum one year These medications are often used in combination with Aspirin in prevention of future heart attacks Never discontinue unless consult with your Phone Triage Specialist STROKE (CVA) Risk factors for a stroke are: Age, cigarette smoking, diabetes, excessive alcohol consumption, family history, high blood pressure, overweight, physical inactivity, prior stroke, heart attack, diagnosis of carotid artery stenosis or other artery disease. Warning signs: Sudden numbness or weakness of the face, arm or leg; especially on one side of the body, sudden confusion, trouble speaking or understanding, sudden trouble seeing in one or both eyes, sudden trouble walking, dizziness, loss of balance or coordination, sudden severe headache with no cause. Call 911 or go to the Emergency Room. CONGESTIVE HEART FAILURE: If you have been diagnosed with Congestive Heart Failure (CHF) and your symptoms return, make an appointment with your physician Weigh yourself daily. Notify your physician if you have a weight gain of two or more pounds in one day or five or more pounds in one week. If you experience any difficulty breathing, please call 911 BLEEDING: Although the risk of bleeding is minimal, it can happen. If you have any bleeding from the site, apply firm pressure above the puncture site for 10-15 minutes. If the bleeding does not stop, continue manual pressure and call 911 Contact your physician if: You develop a fever greater than 101 degrees Fahrenheit Your site becomes reddened or has any drainage You have an increase in pain or burning at the site or if a large knot forms at the site. If you experience chest pain, shortness of breath, dizziness, or extreme tiredness, stop the activity and rest. Please notify your physicians office if you experience any of these symptoms and they are not relieved by rest please call 911! - Diet and Activity Activity: resume usual activities as tolerated (post-cath restrictions ) Diet: diabetic diet, low fat, low cholesterol, low salt diet
--- NOTE | 2017-09-10 11:43 | Cardiology Progress Note ---
Date of Encounter: 09/10/17 Time of Encounter: 11:41 Assessment and Plan (1) S/P coronary artery stent placement Current Visit: Yes Status: Acute S/P LHC yesterday for unstable angina and abnormal stress test with evidence of anterior ischemia. Double vessel CAD. EF 60%. Successful PTCA/FLOR to pLAD. DAPT (ASA and Plavix) uninterrupted. Pt verbalizes understanding. Continue BB, Statin. Will plan to stop ASA after 1 month since we are starting Eliquis for PAF and pt will be on triple therapy. TTE EF preserved, no significant valvular dysfunction. Right femoral access site healing well. No bleeding, hematoma or ecchymosis noted. Restrictions discussed. Cardiology signing off. Reconsult PRN. Will coordinate outpt follow-up in 3-4 weeks. (2) Abnormal stress test Current Visit: Yes Status: Acute As above. (3) PAF (paroxysmal atrial fibrillation) Current Visit: Yes Status: Acute Hx of PAF. Previously declined anticoagulation. Maintained SR during stay. [id number] 4 (Age, HTN, DM, CAD). High CVA risk. Pt agreeable to NOAC. Zamarripa check Eliquis 5mg BID--$40/month. Pt reports this is affordable. Will be on triple therapy--ASA, Plavix, Eliquis. Plan to stop ASA as outpt in 1 month. (4) CAD (coronary artery disease) Current Visit: Yes Status: Chronic S/P PCI to pLAD. ASA, Plavix, Statin, BB. Qualifiers: Coronary Disease-Associated Artery/Lesion type: [place] artery [place] vs. transplanted heart: [place] heart Associated angina: with unstable angina Qualified Code(s): I25.110 - Atherosclerotic heart disease of [place] coronary artery with unstable angina pectoris Discussion w patient/family: The assessment and plan as outlined above was discussed with the patient and/or family members who expressed understanding and agreement. All questions were answered. Thank you for involving us in the care of your patient. Please call with any questions. I will discuss all the above with Dr. Iglesias and make changes as necessary. Subjective Principal diagnosis: CAD s/p PCI Interval history: S/P LHC yesterday for unstable angina and abnormal stress test. LHC revealed double vessel CAD, EF 60%. Successful PTCA/FLOR to pLAD. 20% LMCA, 40% pLCx, 40% pRCA and mRCA, 50% distal RCA, 30% RPDA. Pt denies chest, arm or jaw discomfort overnight. Denies dyspnea. No acute cardiac complaints. Objective Vital Signs, Last 4 Hours Temp Pulse Resp BP Pulse Ox 09/10/17 11:04 97.8 F 65 18 123/76 93 Vital Signs Temp Pulse Pulse Resp BP Pulse Ox 09/10/17 11:04 97.8 F 65 18 123/76 93 09/10/17 07:24 97.7 F 66 18 124/79 97 09/10/17 03:59 97.6 F 61 18 133/75 96 09/09/17 23:20 97.6 F 52 16 129/75 94 09/09/17 21:00 60 138/74 09/09/17 20:00 61 131/67 09/09/17 18:49 98.1 F 67 21 138/71 91 09/09/17 17:30 67 164/76 09/09/17 17:00 64 149/85 09/09/17 16:45 60 126/70 09/09/17 16:30 62 162/86 09/09/17 16:25 60 160/86 93 09/09/17 16:20 59 160/87 94 09/09/17 16:15 61 161/89 95 09/09/17 16:08 61 61 166/86 95 09/09/17 15:00 47 47 155/88 09/09/17 14:21 97.7 F 52 18 140/83 96 09/09/17 14:00 55 55 140/83 Intake and Output 09/09/17 09/10/17 09/10/17 23:59 07:59 15:59 Intake Total 480 / 480 1000 / 1000 Output Total 1320 / 1320 1000 / 1000 300 / 300 Balance -840 / -840 0 / 0 -300 / -300 Intake: IV Fluids 1000 / 1000 0.9 % Sodium Chloride 1,000 ML 1000 / 1000 @ 100 mls/hr IVC .Q10H [facility] Rx#: [id number] Oral 480 / 480 0 / 0 Output: Urine 1320 / 1320 1000 / 1000 300 / 300 Other: Meal Dinner Breakfast Percent of Meal Consumed 100% 100% Weight 128.5 kg Blood Glucose* 179 155 148 Patient Weight 09/10/17 23:59 Weight 128.5 kg General: Conversant, No Apparent Distress HEENT: Atraumatic, Normocephaly, Mucus Membranes Moist Neck: No JVD, Normal carotid pulses Cardiac: Reg Rate and Rhythm, Normal S1 and S2, No Murmur Lungs: Normal Breath Sounds, No Wheeze, Rales, Rhonchi Neuro: Alert and responsive, No focal deficits noted Abdomen: Soft, Non-Tender Skin: Other (right femoral access site healing well. No bleeding, hematoma or ecchymosis noted.) Musculoskeletal: No Chest Wall Tenderness Extremities: No Clubbing, No Cyanosis, No Edema, Normal Pulses Results 09/10/17 03:56 09/10/17 03:56 Lab Results 09/09/17 09/10/17 09/10/17 11:21 03:56 03:56 WBC 9.0 Hgb 14.5 Hct 45.9 Plt Count 208 Sodium 138 Potassium 4.1 Chloride 104 Carbon Dioxide 27 BUN 14 Creatinine 0.67 L Glucose 132 H Calcium 8.9 Troponin I < 0.03 09/10/17 03:56 WBC Hgb Hct Plt Count Sodium Potassium Chloride Carbon Dioxide BUN Creatinine Glucose Calcium Troponin I 0.03 Short CBC 09/10/17 Range/Units 03:56 WBC 9.0 (4.3-11.1) K/mcL Hgb 14.5 (12.9-16.9) g/dL Hct 45.9 (37.5-50.1) % Plt Count 208 (140-400) K/mcL Neutrophils # 5.9 (1.6-8.9) K/mcL BMP 09/10/17 Range/Units 03:56 Sodium 138 (136-145) mEq/L Potassium 4.1 (3.5-5.1) mEq/L Chloride 104 (98-107) mEq/L Carbon Dioxide 27 (23-29) mEq/L BUN 14 (8-23) mg/dL Creatinine 0.67 L (0.70-1.30) mg/dL Glucose 132 H (70-105) mg/dL Calcium 8.9 (8.6-10.3) mg/dL Cardiac Enzymes 09/10/17 09/09/17 Range/Units 03:56 11:21 Troponin I 0.03 < 0.03 (< 0.04) ng/mL Impressions Echocardiogram 09/09/17 10:19 Impressions: LVEF 55-60%. Mild left ventricular diastolic dysfunction. Normal right ventricular structure and function. No significant valvular dysfunction. Unable to estimate RVSP - lack of TR signal. Left Ventricular Wall Motion: Rest Echo Findings The mid inferior and basal inferior uribe were not visualized. All other wall segments showed normal motion. Findings: Study Quality * Technically challenging due to body habitus. ECG Findings * Normal sinus rhythm. Left Ventricle * LVEF 55-60%. * LV wall thickness measurements not well obtained. * normal LV size. * Mild left ventricular diastolic dysfunction. * Definity echo contrast was used. Right Ventricle * Normal right ventricular structure and function. Left Atrium * Normal left atrial size. Right Atrium * Normal right atrial size. Aortic Valve * No aortic regurgitation. * Aortic valve not well visualized. * No aortic stenosis. Mitral Valve * No mitral regurgitation. * Normal mitral valve structure. * No mitral stenosis. Tricuspid Valve * Tricuspid valve not well visualized. * Estimated RA pressure is 8 mmHg. Pulmonic Valve * Pulmonic valve is not well visualized. * No pulmonic stenosis. * No pulmonic regurgitation. Pulmonary Artery * Pulmonary artery not well visualized. Aorta * Not well visualized. Pericardium * There is no pericardial effusion present. Interatrial Septum * No evidence of PFO by color Doppler. IVC * The IVC is dilated. * > 50% respiratory change Active Medications Acetaminophen (Tylenol) 650 mg PO Q6HR PRN PRN Reason: mild to moderate pain Stop: 03/11/18 11:42 Hydrocodone Bitart/Acetaminophen ([place] 5-325 Mg) 1 tab PO Q6HR PRN PRN Reason: Severe Pain Stop: 03/11/18 11:42 Last Admin: 09/09/17 14:15 Dose: 1 tab Apixaban (Eliquis) 5 mg PO BID HARRIET Stop: 03/12/18 21:01 Aspirin (Aspirin) 81 mg PO DAILY HARRIET Stop: 03/12/18 09:01 Last Admin: 09/10/17 07:44 Dose: 81 mg Atorvastatin Calcium (Lipitor) 80 mg PO HS HARRIET Stop: 03/11/18 21:01 Last Admin: 09/09/17 21:13 Dose: 80 mg Clopidogrel Bisulfate (Plavix) 75 mg PO DAILY HARRIET Stop: 03/13/18 09:01 Dextrose/Water (Dextrose 50% (Syg)) 25 ml IVP AD PRN PRN Reason: Hypoglycemia Stop: 03/11/18 11:26 Enoxaparin Sodium (Lovenox) 40 mg SQ 0600 HARRIET PRN Reason: Protocol Stop: 03/12/18 06:01 Last Admin: 09/10/17 05:34 Dose: 40 mg Glucagon (Glucagen) 1 mg IM ONCE PRN PRN Reason: Hypoglycemia Stop: 03/11/18 11:26 Glucose (Gluctose) 15 gm PO ONCE PRN PRN Reason: Hypoglycemia Stop: 03/11/18 11:26 Glucose (Gluctose) 30 gm PO ONCE PRN PRN Reason: Hypoglycemia Stop: 03/11/18 11:26 Dextrose (Dextrose 5%) 1,000 mls @ 100 mls/hr IVC .Q10H PRN PRN Reason: HYPOGLYCEMIA Stop: 03/11/18 11:26 Insulin Human Lispro (Humalog) 0 units SQ HS HARRIET PRN Reason: Protocol Stop: 03/11/18 21:01 Last Admin: 09/09/17 21:16 Dose: Not Given Insulin Human Lispro (Humalog) 0 units SQ TIDAC [facility] PRN Reason: Protocol Stop: 03/11/18 11:31 Last Admin: 09/10/17 07:52 Dose: 2 units Lisinopril (Zestril) 5 mg PO DAILY HARRIET PRN Reason: Protocol Stop: 03/11/18 11:31 Last Admin: 09/10/17 07:44 Dose: 5 mg Metoprolol Succinate (Toprol Xl) 25 mg PO DAILY [facility] Stop: 03/11/18 11:31 Last Admin: 09/10/17 09:56 Dose: Not Given Multivitamins/Calcium (Thera M Plus) 1 tab PO BID [facility] Stop: 03/11/18 11:31 Last Admin: 09/10/17 07:44 Dose: 1 tab Naloxone HCl (Narcan) 0.4 mg IVP Q2MIN PRN PRN Reason: SEE COMMENTS Stop: 03/11/18 11:20 Nitroglycerin (Nitroglycerin) 0.4 mg SL Q5M PRN PRN Reason: Chest Pain Stop: 03/11/18 11:22 Ondansetron HCl (Zofran) 4 mg IVP Q6HR PRN; Protocol PRN Reason: Nausea And Vomiting Stop: 03/11/18 15:01 Pharmacy Profile Note (Patient Taking Own Medication) 0 each PO DAILY HARRIET Stop: 03/11/18 11:31 Last Admin: 09/10/17 07:29 Dose: Not Given Pharmacy Profile Note (Patient Taking Own Medication) 20 each SQ QPM HARRIET Stop: 03/11/18 18:01 Last Admin: 09/09/17 17:05 Dose: Not Given Pharmacy Profile Note (Patient Taking Own Medication) 0 each PO DAILY HARRIET Stop: 03/11/18 11:31 Last Admin: 09/10/17 07:29 Dose: Not Given Tamsulosin HCl (Flomax) 0.4 mg PO DAILY HARRIET PRN Reason: Protocol Stop: 03/11/18 11:31 Last Admin: 09/10/17 07:44 Dose: 0.4 mg Trazodone HCl (Trazodone) 50 mg PO HS HARRIET Stop: 03/11/18 21:01 Last Admin: 09/09/17 21:14 Dose: 50 mg - Imaging and Cardiology Echo: report reviewed Cardiac cath: report reviewed - EKG Interpretation EKG results cardiology: other (12 hr tele AVG HR 60, SR, no significant pauses or arrhythmias noted.) Consult Discharge Plan - Plan Additional Instructions: RISK FACTORS: STOP SMOKING: If you smoke, STOP. Smoking or tobacco use significantly increases your risk of heart disease because nicotine causes the arteries to narrow or constrict. It also causes fats to stick to the artery. Your chances of having a heart attack are greatly increased if you continue to smoke. For more information, call the education line for smoking cessation 4-726-MZRIQDU EAT A LOW FAT/CHOLESTEROL/SODIUM DIET: This diet may help reduce your chances of having a heart attack. LIFTING: Avoid lifting anything more than 10 pounds for 5-7 days Prior to straining, laughing, sneezing and/or coughing, apply manual pressure directly over insertion site. ACTIVITY: You may walk or climb stairs as tolerated You can resume sexual activity as tolerated In general, you are encouraged to engage in a minimum of 30 minutes or more of moderate intensity physical activity, such as brisk walking, daily or at least 3 -4 times weekly BATHING Do not submerge the site into water (bath tub, hot tub, swimming pool) for 1 week. This can be a source for infection into the blood stream. You may shower after 24 hours SITE CARE: After 24 hours, you may remove the dressing and leave the site open to air. Keep the site clean and dry. Clean gently and pat dry. You can expect bruising and tenderness that gradually resolve within a week or two. Return to work as instructed per your physician Resume driving as instructed per physician Keep all scheduled follow up appointments Resume medications as instructed IMPORTANT: If prescribed a Platelet Aggregation Inhibitor such as, Plavix, Brilinta or Effient: Duration of therapy is minimum one year These medications are often used in combination with Aspirin in prevention of future heart attacks Never discontinue unless consult with your Arboreal Scientist STROKE (CVA) Risk factors for a stroke are: Age, cigarette smoking, diabetes, excessive alcohol consumption, family history, high blood pressure, overweight, physical inactivity, prior stroke, heart attack, diagnosis of carotid artery stenosis or other artery disease. Warning signs: Sudden numbness or weakness of the face, arm or leg; especially on one side of the body, sudden confusion, trouble speaking or understanding, sudden trouble seeing in one or both eyes, sudden trouble walking, dizziness, loss of balance or coordination, sudden severe headache with no cause. Call 911 or go to the Emergency Room. CONGESTIVE HEART FAILURE: If you have been diagnosed with Congestive Heart Failure (CHF) and your symptoms return, make an appointment with your physician Weigh yourself daily. Notify your physician if you have a weight gain of two or more pounds in one day or five or more pounds in one week. If you experience any difficulty breathing, please call 911 BLEEDING: Although the risk of bleeding is minimal, it can happen. If you have any bleeding from the site, apply firm pressure above the puncture site for 10-15 minutes. If the bleeding does not stop, continue manual pressure and call 911 Contact your physician if: You develop a fever greater than 101 degrees Fahrenheit Your site becomes reddened or has any drainage You have an increase in pain or burning at the site or if a large knot forms at the site. If you experience chest pain, shortness of breath, dizziness, or extreme tiredness, stop the activity and rest. Please notify your physicians office if you experience any of these symptoms and they are not relieved by rest please call 911! Referrals: David Barajas MACHINE HEDDLE CLEANER [Advanced Practice Nurse] - 10/01/17 11:30 am Salcido,Paulina Dugan CNP [Primary Care Provider] - 09/15/17 9:45 am Prescriptions: Aspirin 81 mg PO DAILY #90 tab.chew Atorvastatin [Lipitor] 80 mg PO HS #180 tablet Clopidogrel [Plavix] 75 mg PO DAILY #90 tablet
[2017-09-10] MEDS ORDERED: Apixaban 5 MG TABLET PO SCH (21:00)
--- NOTE | 2017-09-11 15:34 | Electrocardiograph Report ---
[address] [address] Test Date: 2017-09-08 Pat Name: Salvatore Bourgeois Department: 104 Room: [facility] Gender: M Clinical Genetics Laboratory Chief: MINNIE : 1945 Requested By: Nino Cortes Order Number: [id number] Reading MD: Hunter Iglesias Measurements Intervals [place] Rate: 64 P: 29 DC: 171 QRS: 12 QRSD: 102 T: 83 QT: 377 QTc: 387 Interpretive Statements SINUS RHYTHM NONSPECIFIC T-WAVE ABNORMALITY Electronically Signed On 09-11-2017 15:32:55 EDT by Hunter Iglesias
--- NOTE | 2017-09-11 15:42 | Electrocardiograph Report ---
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
== END 2017-09-10 13:00 | disposition home or self-care (01) | DRG 247 ==
LOC: EMEROO 21:21 → 3ANU 21:21 → 2NNU 09-09 13:14
PROVIDERS: ADMIT Internal Medicine; ATTEND Family Medicine

== ENCOUNTER 2021-09-17 07:40 | Inpatient (IN) ==
[2021-09-17] MEDS ORDERED: 0.9 % Sodium Chloride 1,000 ML ONE ×3 (07:43→13:02)
[2021-09-17] MEDS ORDERED: *HR* Midazolam HCl 2 MG/2 ML VIAL ONE (11:09)
[2021-09-17] MEDS ORDERED: *HR* FentaNYL (PF) 100 MCG/2 ML VIAL ONE (11:09)
[2021-09-17] MEDS ORDERED: *HR* Propofol 200 MG/20 ML VIAL IVP ONE (11:09)
[2021-09-17] MEDS ORDERED: Lidocaine HCL 4 ML Topical Solution (Laryng-O-Jet Kit Sterile Pak) TP ONE (11:10)
[2021-09-17] MEDS ORDERED: *HR* Rocuronium Bromide 50 MG/5 ML VIAL ONE (11:10)
[2021-09-17] MEDS ORDERED: ISOVUE-370 200 ML INFUS..BTL ONE (11:12)
[2021-09-17] MEDS ORDERED: Heparin 1,000 UNITS/500 mL 1,500 ML ONE (11:12)
[2021-09-17] MEDS ORDERED: Protamine Sulfate 50 MG/5 ML VIAL IVP ONE (11:12)
[2021-09-17] MEDS ORDERED: *HR* Heparin 10,000 UNIT/10 ML VIAL ONE (11:12)
[2021-09-17] MEDS ORDERED: *HR* OxyCODONE Immed Rel 5 MG TABLET PO PRN (11:57)
[2021-09-17] MEDS ORDERED: *HR* FentaNYL (PF) 100 MCG/2 ML VIAL IVP PRN (11:57)
[2021-09-17] MEDS ORDERED: Ondansetron 4 MG/2 ML VIAL IVP PRN (11:57)
[2021-09-17] MEDS ORDERED: Heparin 1,000 UNITS/500 mL 500 ML ONE (13:45)
[2021-09-17] MEDS ORDERED: Perflutren Lipid Microsphere 1.3 ML in 0.9 % Sodium Chloride 8.7 ML IVP PRN (14:24)
[2021-09-17] MEDS ORDERED: *HR* Dextrose 50 % in Water (Syg) 50 ML SYRINGE IVP PRN (14:25)
[2021-09-17] MEDS ORDERED: Dextrose 4 GM Chewable Tablets PO PRN ×2 (14:25)
[2021-09-17] MEDS ORDERED: D5% in Water 1,000 ML IVC PRN (14:25)
[2021-09-17] MEDS: Insulin LISPRO 300 UNITS/3 ML VIAL SUBQ SCH (15:42)
[2021-09-17] MEDS: [UNRECOGNIZED DRUG - OTHER] PO SCH (19:43)
[2021-09-17] MEDS: Apixaban 5 MG TABLET PO SCH (19:44)
[2021-09-17] MEDS ORDERED: traZODone 50 MG TABLET PO SCH (21:00)
[2021-09-17] MEDS ORDERED: Menthol 1 EACH LOZENGE PO PRN (23:01)
[2021-09-18 02:02] LABS: Basophils % 0.3 %; Eosinophils # 0.1 K/mcL (0.0-0.6); Eosinophils % 0.6 %; Hemoglobin 13.5 g/dL (12.9-16.9); Immature Granulocytes % 0.4 % (0-4); Lymphocytes # 1.2 K/mcL (0.6-4.6); Lymphocytes % 12.4 %; Mean Corpuscular HGB Conc 32.1 g/dL (31.6-35.5); Mean Corpuscular Volume 90.3 fL (83.0-100.0); Mean Platelet Volume 9.9 fL (9.4-12.4); Monocytes # 0.9 K/mcL (0.0-1.3); Monocytes % 8.6 %; Neutrophils # 7.8 K/mcL (1.6-8.9); Platelet Count 200 K/mcL (140-400); Red Blood Count 4.65 M/mcL (4.19-5.50); Red Cell Distribution Width 13.1 % (11.5-14.5); Segmented Neutrophils % 77.7 %
[2021-09-18 02:16] LABS: INR 1.2; Prothrombin Time 13.7 Seconds (9.4-12.1)
[2021-09-18 05:18] LABS: BUN/Creatinine Ratio 19 (6-26); Blood Urea Nitrogen 13 mg/dL (8-23); Calcium 9.1 mg/dL (8.6-10.3); Carbon Dioxide 22 mEq/L (23-29); Chloride 103 mEq/L (98-107); Glucose 141 mg/dL (70-105); Osmolality,Calculated 288 (280-300); Potassium 4.2 mEq/L (3.5-5.1); Sodium 138 mEq/L (136-145); eGFR For African Americans > 60 (> 60); eGFR For Non-African Americans > 60 (> 60)
[2021-09-18 06:46] VITALS: BP 126/57; TEMP 97.9
[2021-09-18] MEDS: Insulin LISPRO 300 UNITS/3 ML VIAL SUBQ SCH ×2 (07:42→10:54)
[2021-09-18] MEDS: [UNRECOGNIZED DRUG - OTHER] PO SCH (07:43)
[2021-09-18] MEDS: Apixaban 5 MG TABLET PO SCH (07:49)
[2021-09-18] MEDS ORDERED: lisinopriL 5 MG TABLET PO SCH (09:00)
[2021-09-18] MEDS ORDERED: Metoprolol XL (24 HR) Succ 25 MG TAB.ER.24H PO SCH (09:00)
[2021-09-18 10:35] VITALS: PULSE 74; O2SAT 98
== END 2021-09-18 11:55 | disposition home or self-care (01) | DRG 274 ==
LOC: INVDIALAB 07:40 → 2NENU 15:25
PROVIDERS: ADMIT Internal Medicine Clinical Cardiac Electrophysiology; ATTEND Internal Medicine Clinical Cardiac Electrophysiology